=== PATIENT | female | born 1950 | race Caucasian/White ===

== ENCOUNTER 2017-06-23 01:24 | Observation (INO) | payer MEDICARE ==
[~2017-06-23] VITALS: Ht 157.5 cm; Wt 77.2 kg
[2017-06-23] MEDS ORDERED: SYMBICORT 16010.2 GM INH (02:06)
[2017-06-23] MEDS ORDERED: LIPITOR40 MG (02:08)
--- NOTE | 2017-06-23 04:46 | NUR ---
RECIEVED REPORT FROM BEAN OBRIEN OVER PHONE. ROOM SET UP AND READY FOR PT.
--- NOTE | 2017-06-23 04:55 | NUR ---
recieve pt to the floor via stretcher. pain reported 7/10 in lower abdomen. morphin 4mg given iv. reports no nausea. ns @ 125 infusing.cef and flagyl hung. iv site infiltrated on LH. CHANGED TO R FOREARM. PT IS A/O X4. ASSESSMENT COMPLETED. LUNGS DIM IN BASES. CMS INTACT. NO EDEMA NOTED. PULSE +2 ALL 4 EXTREMITIES. ORIENTED TO ROOM, CALL LIGHT USE, FALL PREVENTION, PAIN MANAGEMENT. CALL LIGHT WITHIN REACH. RESTING AT THIS TIME.
[2017-06-23] MEDS ORDERED: FLONASE ALLERG9.9 ML NAS (05:23)
--- NOTE | 2017-06-23 08:00 | NUR ---
FULL BODY ASSESMENT DONE, PATIENT REQUESTING SOME PAIN MEDICATION. ABDOMEN SOFT, BOWEL TONES ACTIVE THROUGHOUT. IV FLUIDS INFUSING. RESTING BACK IN BED. VS STABLE.
--- NOTE | 2017-06-23 09:05 | NUR ---
PT IN BED AWAKE. TOOK BRK TRAY. AM CARE.
--- NOTE | 2017-06-23 12:30 | NUR ---
NEW ORDERS FOR IV FLUIDS. PATIENT STATES " MY PAIN IS BETTER" PATIENT ABLE TO HAVE CLEAR LIQUIDS, TOLERATING WELL. PATIENT RESTING BACK IN BED. LEFT TO GET PERSONAL ITEMS FROM [facility]. WILL BRING BACK INHALERS FOR PATIENT USE ON FLOOR.
--- NOTE | 2017-06-23 15:46 | NUR ---
Medications reconciled by pharmacist using pharmacy records, patient interview and visual inspection of patient's inhalers
[2017-06-23] MEDS ORDERED: FAMOTIDINE20 MG PO (15:56)
[2017-06-23] MEDS ORDERED: ALLEGRA ALLERGY60 MG PO (15:57)
--- NOTE | 2017-06-23 19:08 | NUR ---
PATIENT UP SITTING AT SIDE OF BED, HAS BEEN TOLERATING CLEAR LIQUIDS. COMPLAITNS OF HEADACHEM POSSIBLE SIDE EFFECT OF MORPHINE THAT WAS ADMINISTERED EARLIER. DR. SANTIAGO OKAYED TO ADMINISTER TYLENOL FOR HEADACHE. ADMINISTERED 0.3 MG DILAUDID FOR PAIN CONTROL, RATED PAIN 5/10 ON PAIN SCALE. STATES " ALL I NEED IS SOME SLEEP".
--- NOTE | 2017-06-23 19:20 | NUR ---
BEDSIDE REPORT RECEIVED FROM MICAH ISBELL. PT LYING IN BED, AWAKE, DROWSY. PT RATES PAIN IN ABD 3/10 AT THIS TIME. IV ABT AND IVF INFUSING WNL. CALL LIGHT IN REACH, WILL CONTINUE TO MONITOR.
--- NOTE | 2017-06-23 20:30 | NUR ---
PT ASSESSMENT COMPLETE. LUNGS CLEAR THROUGHOUT ALL LOBES, BOWEL TONES PRESENT, HYPOACTIVE X 4, ABDOMEN SOFT, TENDER WITH PALPATION RLQ, LLQ, PT RATES PAIN 3/10, "CRAMPING". SCDS PLACED ON PT AT THIS TIME, EDUCATION PROVIDED. IV FLUSHED WNL, GOOD BLOOD RETURN, ANTIBIOITICS INFUSING WNL. SBA TO RESTROOM, PT STEADY ON FEET, MINIMAL ASSIST. ORAL CARE AND VOID AT THIS TIME. SBA BACK TO BED, RT CAROLINE IN ROOM FOR INHALER ADMINISTRATION. PT DEMONSTRATED IS USE EFFECTIVELY WITH 1750 BEST EFFORT. CALL LIGHT IN REACH, VITALS AND IS AND OS COMPLETE AT THIS TIME. LIGHTS OFF IN ROOM.
--- NOTE | 2017-06-23 22:15 | NUR ---
IN PT ROOM FOR IV ANTBIOTIC ADMINISTRATION. IV SITE ASSESSED, LOOSE AT TUBING, REINFORCED, INFUSING WNL. PT DENIES NAUSEA, CONTINUES TO RATE PAIN 3/10 IN LOWER ABD. REFUSES ICE PACK. PT C/O SCDS, UNABLE TO SLEEP, REMOVED AT THIS TIME PER PT REQUEST. CALL LIGHT IN REACH. WILL CONTINUE TO MONITOR.
--- NOTE | 2017-06-23 23:00 | NUR ---
IV FLAYL INFUSION COMPLETE AT THIS TIME, IVF AND IV CEFEPIME INFUSING AT THIS TIME. PT DENIES PAIN, DENIES NAUSEA. EATING JELLO AT THIS TIME. CALL LIGHT IN REACH.
--- NOTE | 2017-06-23 23:40 | NUR ---
CALL LIGHT ANSWERED, SBA TO RESTROOM FOR 200 ML VOID AND BACK TO BED, IVF INFUSING WNL. CALL LIGHT IN REACH. LIGHTS OFF IN ROOM.
--- NOTE | 2017-06-24 02:12 | NUR ---
PT VITALS COMPLETE AT THIS TIME BP 146/83, HR 71, AFEBRILE, 97% ON ROOM AIR. ABDOMEN TENDER IN LLQ, RLQ, BOWEL TONES ACTIVE X 4, PT CONTINUES TO RATE PAIN 3/10, "TENDER, CRAMPING". REFUSES PRN MEDICATIONS AT THIS TIME. PT STATES "I'M HUNGRY, THAT'S WHY MY STOMACH HURTS." PT GIVEN CLEAR APPLE ENSURE. LUNGS CLEAR THROUGHOUT ALL LOBES. HR REGULAR RHYTHM. IV ANTIBIOTIC INFUSIONS COMPLETE, IVF INFUSING WNL. CALL LIGHT IN REACH. LIGHTS OFF IN ROOM.
--- NOTE | 2017-06-24 04:41 | NUR ---
IN PT ROOM FOR ABT ADMINISTRATION. PT C/O NAUSEA, PRN ZOFRAN ADMINISTERED. PT STATES SHE IS HUNGRY, GIVEN JELLO REQUESTED. SBA TO RESTROOM, PT INSTRUCTED TO USE CALL LIGHT WHEN FINISHED, VERBALIZED UNDERSTANDING.
--- NOTE | 2017-06-24 05:51 | NUR ---
SBA TO RESTROOM FOR QUANITY SUFFICIENT VOIDS.NO PRN PAIN MEDS ADMINISTERED. PT REQUESTING MORE TO EAT THROUGHOUT SHIFT, TOLERATING JELLO, CLEAR LIQUIDS PO, NO EMESIS, PRN ZOFRAN X 1 FOR NAUSEA. ABD SOFT, TENDER IN LLQ, RLQ, BOWEL TONES ACTIVE. IVF AND ANTIBIOTICS INFUSING WNL.
--- NOTE | 2017-06-24 06:10 | NUR ---
CHECKED ON PT, CONT. TO C/O NAUSEA AFTER ZOFRAN ADMIN, REFUSES PRN PHENERGEN. NO EMESIS. PT STATES "I JUST NEED TO EAT SOMETHING MORE". REQUESTING CRACKERS. MALCOLMLLO WITHIN REACH. VITALS AND IS AND OS COMPLETE. IV CEFEPIME AND IVF INFUSING WNL RIGHT FOREARM. CALL LIGHT IN REACH, NO REQUESTS AT THIS TIME.
--- NOTE | 2017-06-24 07:34 | NUR ---
pt resting in bed. complaining of pain in left lower quadrant. rating pain 3/10. pt also complaining of nausea. denies need for pain medication at this time.
--- NOTE | 2017-06-24 07:43 | CONS ---
[facility] [address] [place], [place] [address] Signed DATE OF CONSULTATION: 06/23/2017 CHIEF COMPLAINT: Left lower quadrant abdominal pain. HISTORY OF PRESENT ILLNESS: Josiah is a 67-year-old female, who is now retired and moved up from the [facility] over to [place], [place]. She and her [place] and she developed left lower quadrant abdominal pain in the last 2 days. She said a colonoscopy 9 years ago was fine except for some diverticulosis and that her colon was a little bit tortuous. She has never had previous trouble with the colon. The pain was pretty severe, so she came in the emergency room for evaluation. White count is normal, but the CT scan of course confirmed this area of sigmoid colon that is thickened and inflamed. Consequently, I was asked to admit her as a general surgeon on-call. She has already started on IV fluids and cefepime and Flagyl. She has been given some pain control and overall, she is feeling a little better. PAST MEDICAL HISTORY: Diverticulosis and endometriosis. PAST SURGICAL HISTORY: Cholecystectomy and a full hysterectomy and a colonoscopy 9 years ago. SOCIAL HISTORY: She quit smoking. She has a drink about 3 times a week. She is to [place] at [phone]. She has 2 grown children and she has several step children. 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 They do live in [place], [place], but said [facility] is a good pharmacy for them. Her primary care provider is Charity Durán in [place], [place] associated with [facility] at [phone]. FAMILY HISTORY: Mom left her at age 12. Dad committed suicide at age 47. REVIEW OF SYSTEMS: She had 10 systems reviewed and she is doing very well and there is no metal in her body. ALLERGIES: Penicillin, sulfa, ibuprofen, loratadine, and pantoprazole. MEDICATIONS: Symbicort and atorvastatin. Electronically Signed By: JOELLE SANTIAGO MD 06/24/17 0743 PATIENT NAME: JOSIAH JOAQUIN CONSULTATION DATE OF : 48 REPORT #: [id number] PHYSICIAN: JOELLE SANTIAGO MD PCP: OTHER PCP REPORT IS CONFIDENTIAL AND NOT TO BE RELEASED WITHOUT AUTHORIZATION [facility] [address] [place], [place] [address] Signed PHYSICAL EXAMINATION: VITAL SIGNS: Her blood pressure is 161/84, her heart rate is 79, respiratory rate 14, and temperature is 97.9. She is 97% on room air. She is 5 feet 2 inches and 77 kg. GENERAL: Josiah is a 67-year-old female, lying supine in her hospital bed. She does not appear systemically ill or toxic. She is alert, awake, and interactive. She is an excellent historian and interacts very well. LUNGS: Clear to auscultation bilaterally. HEART: Regular rate and rhythm. ABDOMEN: Generally soft and flat. She is little tender in the left lower quadrant and deep in the suprapubic area consistent with the CT scan. LABORATORY DATA: Her white blood cell count is 8.1, hemoglobin is 12, neutrophils 74. BUN 16 and creatinine 0.7. UA showed some bacteria, but there are also squamous cells. Liver function tests are negative. Albumin is 4.2. RADIOGRAPHIC STUDIES: The CT scan of the abdomen and pelvis is reviewed along with the report. One can easily see this area in the sigmoid colon just behind and slightly above the bladder that is thickened and inflamed. ASSESSMENT AND PLAN: Josiah is a 67-year-old female, who presents with her first episode of sigmoid diverticulitis. It does not appear to be particularly complicated, but she was in quite a bit of pain at presentation to the ER. She has been given fluids, started on IV antibiotics and her pain control and overall she is better. I had a long discussion with her about diverticulitis and the difference between medical and surgical therapies. I think at this point, we are going to wait and see how she responds to the medical therapy. If she needs surgery, she would like to travel 3 hours East, the [place], [place] to be closer to her regular physicians and her home and so forth as certainly reasonable. At this point, we will let her have some clear liquids and we will continue the antibiotics. Joelle Santiago MD ALB/MODL /[id number] Electronically Signed By: JOELLE SANTIAGO MD 06/24/17 0743 PATIENT NAME: JOSIAH JOAQUIN CONSULTATION DATE OF : 48 REPORT #: [id number] PHYSICIAN: JOELLE SANTIAGO MD PCP: OTHER PCP REPORT IS CONFIDENTIAL AND NOT TO BE RELEASED WITHOUT AUTHORIZATION [address] [place] [address] Signed cc: Charity Santiago MD Copies: JOELLE SANTIAGO MD ~ Electronically Signed By: JOELLE SANTIAGO MD 06/24/17 0743 PATIENT NAME: JOSIAH JOAQUIN CONSULTATION DATE OF : 48 REPORT #: [id number] PHYSICIAN: JOELLE SANTIAGO MD PCP: OTHER PCP REPORT IS CONFIDENTIAL AND NOT TO BE RELEASED WITHOUT AUTHORIZATION
--- NOTE | 2017-06-24 07:48 | NUR ---
pt up to shower with ENGINEERING AID assist.
--- NOTE | 2017-06-24 07:51 | NUR ---
IN ROOM WITH PTKristi
--- NOTE | 2017-06-24 09:51 | NUR ---
in room to start new iv in left wrist pt tolerated well. in room. discussed plan of care. pt and verbalized understanding,
--- NOTE | 2017-06-24 10:35 | NUR ---
pt complained of nausea. agreeable to half dose of phenegran. gave 6.25mg iv.
--- NOTE | 2017-06-24 11:13 | NUR ---
pt resting in bed with eye's closed. respirations even and unlabored. call light within reach.
--- NOTE | 2017-06-24 12:40 | NUR ---
PT RESTING IN BED. STATED, "MY NAUSEA IS GONE" UPON ASSESSMENT PTS ABDOMEN TENDER TO TOUCH. PT DROWSY FROM PHENEGRAN. REQUESTING TO CONTINUE SLEEPING AT THIS TIME.
--- NOTE | 2017-06-24 14:50 | NUR ---
PT COMPLAINING OF HEADACHE. DISCUSSED CAFFEINE INTAKE. PT REPORTS DRINKING AT LEAST 2 CUPS COFFEE PER DAY. GAVE HALF CUP COFFEE. WILL MONITOR HEADACHE.
--- NOTE | 2017-06-24 16:20 | NUR ---
PT REQUESTING SNACK PRIOR TO DINNER. REQUESTING VANILLA PUDDING. GAVE PUDDING AND ASKED PT TO NOTIFY ME OF ANY NAUSEA.
--- NOTE | 2017-06-24 17:45 | NUR ---
PT UP AND AMBULATING IN HALLWAY WITH RN TO ASSIST.
--- NOTE | 2017-06-24 18:23 | NUR ---
PT HAS BEEN ADVANCED TO A SOFT DIET. TOLERATING WELL. IV ANTIBIOTICS. PHENEGRAN GIVE X 1 FOR NAUSEA. TYLENOL ALSO GIVEN FOR HEADACHE. PT UP AND AMBULATING IN HALLWAY WITH STANDBY ASSIST. POSSIBLE DC HOME TOMORROW.
--- NOTE | 2017-06-24 19:10 | NUR ---
BEDSIDE REPORT RECEIVED FROM MICAH COREY. PT AWAKE, VISITING WITH IN ROOM. DENIES NAUSEA AT THIS TIME. IV CEFEPIME INFUSING WNL LEFT WRIST. PT DENIES PAIN, DENIES TOILETING NEEDS AT THIS TIME.
--- NOTE | 2017-06-24 20:17 | NUR ---
VITALS AND I&OS DONE AND CHARTED. STOOD BY WHILE PT WENT TO THE BATHROOM. HELPED HER BACK TO BED. GAVE PT HER SHERBERT ICE CREAM PER HER REQUEST. BEDSIDE TABLE AND CALL LIGHT WITHIN REACH.PT NEEDS NOTHING ELSE AT THIS TIME.
--- NOTE | 2017-06-24 22:00 | NUR ---
PT ASSESSMENT COMPLETE AT THIS TIME, PT DENIES NAUSEA, RATES PAIN "DISCOMFORT, CRAMPING" IN LOWER ABD 2-3/10 AT THIS TIME, BOWEL TONES HYPOACTIVE X 4, ABD SOFT, TENDER IN LOWER QUADRANTS. LUNGS CLEAR THROUGHOUT ALL LOBES, HR REGULAR RHYTHM. IV FLUSHED WNL, IV FLAGYL NOW INFUSING WNL. SBA TO RESTROOM FOR 300 ML VOID AND BACK TO BED, GAIT STEADY, MINIMAL ASSIST. CALL LIGHT IN REACH, ALLOTTED WATER PROVIDED REQUESTED.
--- NOTE | 2017-06-24 23:10 | NUR ---
CALL LIGHT ANSWERED, FLAGYL INFUSION COMPLETE, CEFEPIME NOW INFUSING W IVF WNL. SBA TO RESTROOM FOR 500 ML VOID AND BACK TO BED. PT C/O NAUSEA. PRN PHENERGEN ADMINISTERED AT THIS TIME, IV FLUSHED WNL, GOOD BLOOD RETURN. CALL LIGHT IN REACH. LIGHTS OFF IN ROOM. DOOR CLOSED PER PT REQUEST.
--- NOTE | 2017-06-25 00:59 | NUR ---
CALL LIGHT ANSWERED, SBA TO RESTROOM FOR 500 ML VOID AND BACK TO BED, MINIMAL ASSISTANCE NEEDED. IV CEFEMPIME AND IVF INFUSING WNL. CALL LIGHT IN REACH, LIGHTS OFF IN ROOM.
--- NOTE | 2017-06-25 02:59 | NUR ---
CALL LIGHT ANSWERED, SBA TO RESTROOM FOR VOID AND BACK TO BED, IVF INFSUING WNL, CEFEPIME INFUSION COMPLETE AT THIS TIME. BOWEL TONES ACTIVE X4, PT DENIES NAUSEA, REQUESTING FOOD, GIVEN JELLO REQUESTED. ABD SOFT. "DISCOMFORT LOWER ABDOMEN" 2-3/10. LUNGS CLEAR THROUGHOUT ALL LOBES, HR REGULAR RHYTHM. CALL LIGHT IN REACH, NO ADDL REQUESTS AT THIS TIME.
--- NOTE | 2017-06-25 04:21 | NUR ---
IN PT ROOM FOR ABT ADMINISTRATION, PT SLEEPING, AWAKENS TO RN VOICE. IV FLAGYL INFUSING WNL AT THIS TIME. PT HAS NO REQUESTS. CALL LIGHT IN REACH, LIGHTS OFF IN ROOM.
--- NOTE | 2017-06-25 05:00 | NUR ---
IV FLAGYL INFUSION COMPLETE, CEFEPIME INFUSING WNL W IVF. SBA TO RESTROOM FOR VOID, BACK TO BED. VITALS COMPLETE AT THIS TIME, BP 156/83 (99), HR 74, AFEBRILE. PT DENIES NAUSEA. REQUESTING TO SLEEP, LIGHTS OFF IN ROOM, DOOR SHUT PER REQUEST. CALL LIGHT IN REACH.
--- NOTE | 2017-06-25 05:47 | NUR ---
PT ON SOFT FOOD DIET, TOLERATING WELL, PRN PHENERGEN ADMIN X 1 FOR NAUSEA. BOWEL TONES ACTIVE, ABD SOFT THROUGHOUT SHIFT. PAIN IMPROVED THIS SHIFT, NO PRN PAIN MEDICATIONS ADMINISTERED, DESCRIBES "DISCOMFORT". SBA TO RESTROOM FOR QUANITY SUFFICIENT VOIDS.
--- NOTE | 2017-06-25 07:53 | NUR ---
THIS COMMERCIAL LIGHT FIXTURE ASSEMBLER ASSISTED PATIENT UP TO BATHROOM, BACK TO BEDSIDE. PATIENT SITTING UP ON BEDSIDE, EATING BREAKFAST. ORAL CARE AND WASH CLOTH SET UP FOR PATIENT. PATIENT REFUSED SHOWER SHE PLANS ON SHOWERING AFTER DISCHARGE. PATIENT CALL LIGHT IN REACH. NO OTHER NEEDS AT THIS TIME.
[2017-06-25] MEDS ORDERED: NORCO 5-325 TA1 EACH PO (08:19)
[2017-06-25] MEDS ORDERED: LEVAQUIN500 MG PO (08:24)
[2017-06-25] MEDS ORDERED: FLAGYL500 MG PO (08:24)
[2017-06-25] MEDS ORDERED: PROMETHAZINE HC25 M1 PO (08:26)
--- NOTE | 2017-06-26 08:11 | DS ---
[facility] [address], [place] [address] Signed ADMISSION DATE: 06/23/2017 DISCHARGE DATE: 06/25/2017 FINAL DIAGNOSIS: Sigmoid diverticulitis. PROCEDURES: CT scan of abdomen and pelvis. HISTORY OF PRESENT ILLNESS: Josiah is a 67-year-old female from [place], [place]. [place]. She developed left lower quadrant and suprapubic abdominal pain. She said it happened to her a week before, but it went away. This was fairly intense, so she came to emergency room for evaluation. Her white count was normal, but the CT scan did show her sigmoid diverticulitis. Consequently, I was asked to admit her as a general surgeon on-call. We admitted her and gave her cefepime and Flagyl and by the end of the second day she was markedly improved. This morning, she has been able to pass lots of gas. She has been on a soft diet, although she has only taken minimal to moderate amount because she is afraid to eat too much. She has very minimal pain above the suprapubic area. Her happens to be with her today and they were asking if they could drive 3 hours back to [place]. I think at this point, it will be fine. DISCHARGE PLANS AND MEDICATIONS: Josiah is going to be discharged with a prescription for Levaquin 500 mg one tablet p.o. daily for 7 days. She will take Flagyl 500 mg p.o. t.i.d. for an additional 7 days. She wanted some Phenergan, so we will give her 25 mg tablets p.o. q.4-6 hours p.r.n. for nausea and vomiting. We will dispense 10 tablets with one refill. She can resume her Symbicort and her atorvastatin. She will take a soft diet as she has been here in the hospital. Of course, she is welcome to perform her activities of daily living including showering and bathing, walking up and down stairs as needed. She is going to call and make an appointment in about 7 to 10 days with her primary care provider, Charity Durán, who is associated with [facility] in [place], [place] at [phone]. She told me her last colonoscopy was 9 years ago and consequently she will need another colonoscopy here in the weeks ahead. She is well aware that she is improving currently, but it is always possible it could reverse and get worse again and she might need to be admitted to the hospital over at [place] and of course if it were bad enough she would need surgery. Nevertheless, she has made good progress this last 2 days and more than likely she will continue in that regard. I reviewed all this with Josiah and her in detail. They are very responsible people. We are going to send a letter to them so they can be excused from the airline flight and their upcoming cruise until this matter has been Electronically Signed By: JOELLE SANTIAGO MD 06/26/17 0811 PATIENT NAME: JOSIAH JOAQUIN DISCHARGE SUMMARY DATE OF : 48 REPORT #: [id number] PHYSICIAN: JOELLE SANTIAGO MD PCP: OTHER PCP REPORT IS CONFIDENTIAL AND NOT TO BE RELEASED WITHOUT AUTHORIZATION [facility] [address], [place] [address] Signed resolved and then they can reschedule that. She and her have expressed understanding and agreed to above plan. Joelle Santiago MD ALB/MODL /[id number] cc: KATHRINE Ramirez MD Copies: JOELLE SANTIAGO MD ~ Electronically Signed By: JOELLE SANTIAGO MD 06/26/17 0811 PATIENT NAME: JOSIAH JOAQUIN DISCHARGE SUMMARY DATE OF : 48 REPORT #: [id number] PHYSICIAN: JOELLE SANTIAGO MD PCP: OTHER PCP REPORT IS CONFIDENTIAL AND NOT TO BE RELEASED WITHOUT AUTHORIZATION
== END 2017-06-25 09:12 | disposition home or self-care (01) ==
LOC: ED 01:24 → MS 01:25
PROVIDERS: ADMIT Colon & Rectal Surgery
DX: K57.32 Diverticulitis of large intestine without perforation or abscess without bleeding (principal); Z87.891 Personal history of nicotine dependence; Z79.51 Long term (current) use of inhaled steroids; Z79.899 Other long term (current) drug therapy; Z88.0 Allergy status to penicillin; Z88.2 Allergy status to sulfonamides; Z88.8 Allergy status to other drugs, medicaments and biological substances
CPT/HCPCS: 36415; 74177; 80048; 80053; 81001; 83735; 84100; 85025; 94640; 96361; 96365; 96366; 96367; 96368; 96372; 96374; 96375; 96376; 99285; G0378; J0692; J1170; J1644; J2270; J2405; J2550; J7030; J7120; Q9967